=== PATIENT | male | born 1995 | race Caucasian/White ===

== ENCOUNTER 2020-02-19 21:17 | Emergency (ER) | payer BC, SELFPAY ==
[2020-02-19 21:24] VITALS: BP 130/73; PULSE 90; RESP 18; TEMP 36.8; O2SAT 100; BMI 48.6
[2020-02-19 21:30] VITALS: BP 130/73; PULSE 88; RESP 17; O2SAT 99
--- NOTE | 2020-02-19 21:32 | CT_ITS ---
Procedure: CT ABDOMEN PELVIS WO CON Referring Doctor: Jacobo Riggins Patient Age:24Y CLINICAL INDICATION: flank pain the right flank pain with nausea and vomiting 1 hour. Bladder pressure COMPARISON: No exams were available for comparison TECHNIQUE: No IV contrast utilized, and no oral contrast Helical axial images obtained with sagittal and coronal reformats. All CT scans at the facility use one or more dose reduction, viz: automated exposure control, ma/kV adjustment per patient size (including targeted exams where dose is matched to indication, i.e. head), or iterative reconstruction technique. FINDINGS: Lower thorax: Moderate patchy area airspace disease posteriorLLL/left lung base-suspect developing patchy pneumonic infiltrate. There is also a more subtle area of infiltrate at the posterior right lower lobe and posterior sulcus. Patient would benefit fromCovid testing with this appearance to be cautious ABDOMEN: Patient's large size decreases resolution Liver diffuse fatty changes of the liver. No masses or biliary dilatation. Gallbladder: Nondistended. No definitive calcified stones but suspect sludge at at gallbladder.. A difficult to exclude some subtle small noncalcified stones Pancreas: No masses or peripancreatic fluid collections. Spleen: unremarkable Adrenals: unremarkable . tract-------- Tiny punctate calculi seen at both kidneys. Most numerous and evident throughout the left kidney. Left kidney. 4Tiny less than 2 mm nonobstructing calculi left kidney.: 2 at upper pole 1 midportion and 1 towards lower pole. Right kidney. Minimal obstructive uropathy on the right is noted does appear to be a 2 mm calculus projected over the distal right ureter just above the right UVJ. This yield little if any dilatation of the right ureter and only very slight fullness of right pelvocaliceal system system compared to left. Only scant hydronephrosis.. At the right kidney also note tiny less than 2 mm nonobstructing intrarenal calculi: Midportion right kidney (coronal image 58) as well as lower pole (coronal image 55),. . Pelvis. Small bladder.. No free fluid the pelvis but no additional findings. GI tract Stomach postsurgical changes greater curvature stomach suggesting/gastric sleeve/gastric stapling procedure. Small bowel. Unremarkable no dilatation no obstruction. Terminal ileum unremarkable. Appendix identified and normal Large bowel. No significant findings.. Minimal stool right and transverse colon. Incidental abdominal wall hernia is seen to the left of midline slightly above the level of the umbilicus but. The abdominal wall defect here measuring 18 mm and fat containing hernia sac measuring just over 5 cm.. No bowel loops here no inflammation Small fat containing umbilical hernia also noted; no bowel loops no inflammation. Peritoneum: No free air no inflammatory changes no fluid collections Lymph nodes: No enlarged lymph nodes apparent. Vasculature: Unremarkable nt. Bones: No acute fracture or lesions. Mild degenerative changes lower T-spine. Slight wedging T9 could be a could reflect minor old trauma or could merely be congenital given minor wedging hit in overall appearance the IMPRESSION: 1.. Bilateral lower lobe infiltrates with most pronounced patchy area of infiltrate at the left lower lobe. Require correlation, suspect for developing inflammatory process/pneumonia. (Suggest test for Covid) 2... Tiny 2 mm right ureteral calculus distalmost right ureter just proximal to the right UVJ. This yields minimal right obstructive uropathy. With very minimal hydronephrosis on right currently 3...Tiny punctate calculi both kidneys mos
[2020-02-19 21:39] LABS: Basophils # 0.1 K/mm3 (0-0.2); Basophils % 0.5 % (0.1-2.0); Eosinophils # 0.1 K/mm3 (0.0-0.4); Eosinophils % 0.7 % (0.1-12.0); Hematocrit 48.8 % (42.0-52.0); Hemoglobin 16.4 g/dL (14.1-18.0); Lymphocytes # 2.5 K/mm3 (0.7-4.5); Lymphocytes % 24.3 % (10-50); Mean Corpuscular HGB Conc 33.5 g/dL (31.8-35.4); Mean Corpuscular Hemoglobin 29.7 pg (27.0-31.2); Mean Corpuscular Volume 88.7 fl (80-94); Mean Platelet Volume 7.6 fl (7.4-10.4); Monocytes # 0.5 K/mm3 (0.1-1.0); Monocytes % 4.5 % (1.7-9.3); Neutrophils # 7.2 K/mm3 (1.8-7.8); Neutrophils % 70.1 % (37.0-80.0); Platelet Count 281 K/mm3 (142-424); Red Cell Distribution Width 14.9 % (11.5-17.5); White Blood Count 10.3 K/mm3 (4.8-10.8)
[2020-02-19 21:48] LABS: Alanine Aminotransferase 86 U/L (12-78); Albumin Level 4.8 g/dl (3.5-5.0); Albumin/Globulin Ratio 1.4 (1.1-1.8); Alkaline Phosphatase 98 U/L (38-126); Aspartate Amino Transferase 51 U/L (17-59); Bilirubin,Total 0.6 mg/dl (0.2-1.3); Blood Urea Nitrogen 11 mg/dl (9-20); Calcium 9.9 mg/dl (8.4-10.2); Carbon Dioxide 26 mmol/L (22.0-30.0); Chloride 104 mmol/L (98-107); Creatinine Clearance Estimated 153 mL/min (50-200); Estimated Glomerular Filt Rate 102 ml/min (>60); GFR (African American) 123 ML/MIN (>60); Globulin 3.5 g/dL (1.3-3.2); Glucose 127 mg/dl (74-100); Sodium 142 mmol/L (136-145); Total Protein,Serum 8.3 g/dl (6.3-8.2)
[2020-02-19 22:30] VITALS: BP 134/75; PULSE 88; RESP 16; O2SAT 99
[2020-02-19 22:43] LABS: Microscopic, Urine URINE MICROSCOPIC (MICROSCOPIC)
--- NOTE | 2020-02-19 22:47 | [facility].EDGENADL ---
ED Disposition Clinical Impression: Kidney stones Disposition: Home, Self-Care Condition on Discharge: Good Instructions: DI for Acute Pain -- Adult Prescriptions: Tamsulosin HCl [Flomax 0.4mg capsule] 0.4 mg PO HS 10 Days #10 cap Prescription Printed Promethazine HCl 50 mg PO TID 6 Days #20 tab Prescription Printed Ketorolac Tromethamine [Toradol 10mg tablet] 10 mg PO Q6H 5 Days #20 tab Prescription Printed Referrals: Linnea Roe MD [Primary Care Provider] - - Critical Care Critical Care Time: No Attestation: On 02/19/20, the high probability of a clinically significant, sudden or life threatening deterioration of the following system(s) required my full and direct attention, intervention and personal management. The time I documented below is in addition to time spent performing reported procedures but includes the following listed in this critical care notation. Medical Decision Making - Medical Records Medical records reviewed: Yes: I reviewed the patient's medical records. - Vinny Inquiry Pt receiving controlled substance: No Vital Signs: 02/19/20 21:24 02/19/20 21:30 Temperature 98.3 F Temperature Source Oral Pulse Rate [Right] 90 88 Respiratory Rate 18 17 Blood Pressure [Right Arm] 130/73 130/73 Blood Pressure Mean [Right Arm] 92 92 Blood Pressure Source [Right Arm] Automatic Cuff Automatic Cuff Blood Pressure Position [Right Arm] Sitting Supine 02 Sat by Pulse Oximetry 100 99 Oxygen Delivery Method Room Air Room Air - Lab Data Lab results reviewed: Yes: I reviewed the patient's lab results. Lab Results 02/19/20 21:30: WBC 10.3, RBC 5.50, Hgb 16.4, Hct 48.8, MCV 88.7, MCH 29.7, MCHC 33.5, RDW 14.9, Plt Count 281, MPV 7.6, Neut % (Auto) 70.1, Lymph % (Auto) 24.3, [place] % (Auto) 4.5, Eos % (Auto) 0.7, Baso % (Auto) 0.5, Neut # (Auto) 7.2, Lymph # (Auto) 2.5, [place] # (Auto) 0.5, Eos # (Auto) 0.1, Baso # (Auto) 0.1 02/19/20 21:30: Sodium 142, Potassium 4.0, Chloride 104, Carbon Dioxide 26, Anion Gap 16.0 H, BUN 11, Creatinine 0.90, Estimated Creat Clear 153, Estimated GFR 102, Est GFR ( Amer) 123, Glucose 127 H, Calcium 9.9, Total Bilirubin 0.6, AST 51, ALT 86 H, Alkaline Phosphatase 98, Total Protein 8.3 H, Albumin 4.8, Globulin 3.5 H, Albumin/Globulin Ratio 1.4 Result diagrams: 02/19/20 21:30 02/19/20 21:30 Orders (Tests/Meds): ED MEDICATIONS Generic Name Dose Route Start Last Admin Trade Name Freq PRN Reason Stop Dose Admin Sodium Chloride 1,000 mls @ 999 mls/hr 02/19/20 21:45 02/19/20 21:34 Sod Chlor 0.9% 1000ml Bag IV 02/19/20 22:45 999 mls/hr .Q1H1M ASH Administration Discontinued Medications Generic Name Dose Route Start Last Admin Trade Name Freq PRN Reason Stop Dose Admin Ketorolac Tromethamine 30 mg 02/19/20 21:32 02/19/20 21:34 Ketorolac 30mg/Ml Vial IV 02/19/20 21:33 30 mg ONCE ONE Administration Morphine Sulfate 4 mg 02/19/20 22:40 Morphine 4mg/Ml Syringe IV 02/19/20 22:41 ONCE ONE Ondansetron HCl 4 mg 02/19/20 21:32 02/19/20 21:34 Ondansetron 4mg/2ml Vial IV 02/19/20 21:33 4 mg ONCE ONE Administration ORDERS Category Date Time Status CT abdomen pelvis wo con Stat Cat Scan 02/19/20 21:32 Taken Urinalysis and Microscopic Stat Lab 02/19/20 22:30 Received - CT Data CT Scan: Abdomen, Pelvis Time Received: 22:30 Preliminary Findings: Abnormal (2 mm calculus in the right UVJ) General Adult HPI - General Chief complaint: PAIN Stated complaint: Possible kidney stone Time Seen by Provider: 02/19/20 22:47 Mode of Arrival: Ambulatory Limitations: No Limitations Description of Symptoms (Recalled from ER Triage Doc. by RN): Pt c/o superpubic and right flank pain today. - History of Present Illness HPI narrative: 24-year-old male presents emergency department with a acute flank pain rating around to his groin. Patient states his pain started about 90 minutes prior to arr
[2020-02-19 22:48] LABS: Appearance,Urine CLOUDY (Clear); Blood, Urine 3+ (Negative); Color,Urine DK YELLOW (Yellow); Glucose,Urine (UA) Negative (Negative); Ketones,Urine TRACE (Negative); Leukocyte Esterase,Urine Negative (Negative); Nitrate,Urine Negative (Negative); PH,Urine 5.5 (5.0-8.5); Protein,Urine 2+ (Negative); Specific Gravity, Urine >= 1.030 (1.005-1.030); Urobilinogen,Urine 0.2 EU/dl (0.2)
[2020-02-19 22:55] LABS: Bilirubin,Urine Negative (Negative); RBC,Urine TNTC #/hpf (0-3)
[2020-02-19 23:34] VITALS: BP 138/74; PULSE 84; RESP 14; TEMP 36.8; O2SAT 98
== END 2020-02-19 23:37 | disposition home or self-care (01) ==
PROVIDERS: Emergency Provider Family Medicine; PCP Family Medicine
DX: N20.0 Calculus of kidney (principal)
CPT/HCPCS: 74176; 80053; 81001; 85025; 96365; 96366; 96375; 99284; J2405

== ENCOUNTER 2025-03-03 18:43 | Emergency (ER) | payer BC, SELFPAY ==
[2025-03-03] VITALS (7 sets, daily range): BP systolic 137–200; BP diastolic 82–109; PULSE 56–60; RESP 13–16; TEMP 36.8; O2SAT 94–98; BMI 54.8
--- NOTE | 2025-03-03 18:53 | CT_ITS ---
PROCEDURE INFORMATION: Exam: CT Abdomen And Pelvis Without Contrast Exam date and time: 03/03/2025 7:32 PM Age: 29 years old Clinical indication: Abdominal pain; Flank; Lower; Additional info: Flank pain, ureteral stent pulled out today TECHNIQUE: Imaging protocol: Computed tomography of the abdomen and pelvis without contrast. Radiation optimization: All CT scans at this facility use at least one of these dose optimization techniques: automated exposure control; mA and/or kV adjustment per patient size (includes targeted exams where dose is matched to clinical indication); or iterative reconstruction. COMPARISON: CT ABDOMEN PELVIS WO CON 02/19/2020 9:59 PM FINDINGS: Coronary arteries: Coronary artery atherosclerosis. Liver: Normal. No mass. Gallbladder and biliary ducts: Normal. No calcified stones. No ductal dilation. Pancreas: Normal. No ductal dilation. Spleen: Normal. No splenomegaly. Adrenal glands: Normal. No mass. Kidneys and ureters: Mild right hydronephrosis and right hydroureter to the urinary bladder. No ureteral stones. Punctate nonobstructing stone in each kidney. Stomach and bowel: Prior bariatric surgery. No obstruction. No mucosal thickening. Appendix: No evidence of appendicitis. Intraperitoneal space: Unremarkable. No free air. No significant fluid collection. Vasculature: Unremarkable. No abdominal aortic aneurysm. Lymph nodes: Unremarkable. No enlarged lymph nodes. Urinary bladder: Unremarkable. Reproductive: Unremarkable as visualized. Bones/joints: Symmetric sclerosis of the bilateral ilium along the sacroiliac joints, consistent with osteitis condensans ilii. Soft tissues: Small fat containing left paramidline abdominal hernia proximally 5 cm above the umbilicus. Small fat containing umbilical hernia. IMPRESSION: 1. Mild right hydronephrosis and right hydroureter to the urinary bladder. No ureteral stones. 2. Punctate nonobstructing stone in each kidney. 3. Coronary artery atherosclerosis. 4. Additional chronic/nonemergent findings as detailed above.
--- NOTE | 2025-03-03 19:04 | ED_ITS ---
<Statement entered by Nighat Wall DO - 03/04/25 00:08> I was consulted by the BILL, and we discussed the complexity of problems being addressed. I approve the treatment and management plan for this patient's care in the emergency department, thus performing a substantial portion of the medical decision making. Nighat Wall DO Discharge Plan Disposition Patient Disposition: Home, Self-Care Condition: Good Prescriptions Prescriptions: No Action ketorolac 10 MG tablet 10 mg PO Q6H 5 Days Qty: 20 0RF tamsulosin 0.4 MG capsule 0.4 mg PO HS 10 Days Qty: 10 0RF promethazine 50 MG tablet 50 mg PO TID 6 Days Qty: 20 0RF Referrals Follow up/Referrals: Esau Wilson MD [Referring, Medical] - See instructions Linnea Roe MD [Primary Care Provider, Medical] - See instructions Activity Restrictions/Add. Instructions Additional Instructions/Restrictions: Please call your urologist tomorrow for a follow-up appointment. Return here if your pain is not controlled or if you are unable to urinate. Follow-up with your PCP to discuss your abdominal hernias. Clinical Impressions Clinical Impression: Hydronephrosis Instructions Patient Instructions: Hydronephrosis in Adults Print Language Print Language: [place] Discharge ED Provider: Nighat Wall General Adult [facility] General Chief complaint: PAIN Stated complaint: STINT CAME OUT FROM KIDNEY Time Seen by Provider: 03/03/25 18:48 Mode of Arrival: Ambulatory Source of Information: Patient Description of Symptoms (Recalled from ER Triage Doc. by RN): pt presents to ED with c/o pain in penis. pt had a stent placed at [facility] yesterday. the stent began to fall out, pt and his called the [facility] urologist who told him to pull stent out and if he began to have worsening pain to come to ER. last dose of pain medication was at 4 pm, stent was pulled out around 5 pm. History of Present Illness HPI narrative: Patient presents complaining of right flank pain. He had a ureteral stent placed yesterday after kidney stone extraction. This was done at [facility] by Dr. Varma. Today he sat down to urinate and his stent became lodged between his leg and the toilet seat causing it to pull out somewhat. They called the urologist on-call who advised if it was uncomfortable to remove the stent completely. Patient has had extreme pain since that time. He did take pain medication at 1600. The stent came out at 1645. Denies any fevers or vomiting. He is taking [place], hyosamine, Macrobid, Pyridium MD complaint: flank pain Onset (ago): hour(s) (1) Location: back Radiation: non-radiation Severity: severe Consistency: constant Relieving factors: none Exacerbating factors: none Associated symptoms: denies other symptoms Treatments prior to arrival: other (norco ) Related Data Previous Rx's ?Medication ?Instructions ?Recorded ketorolac 10 mg tablet 10 mg PO Q6H 5 days #20 tabs 02/19/20 promethazine 50 mg tablet 50 mg PO TID 6 days #20 tabs 02/19/20 tamsulosin 0.4 mg capsule 0.4 mg PO HS 10 days #10 cap s 02/19/20 Allergies Allergy/AdvReac Type Severity Reaction Status Date / Time No Known Allergies Allergy Verified 02/19/20 21:31 [facility] Disclaimer: The information contained in this section may have been updated after the patient was seen, as this information can be updated by other users. Social History Smoking Status: Never smoker alcohol intake: current alcohol intake frequency: a few times a week current occupational status: employed Travel in the last 8 weeks?: None Have you lived/traveled outside US in past 30 days?: No Contact w/someone who lives/traveled outside US past 30 days?: No Exposure to someone with infectious disease in past 14 days?: No Do you have a fever (greater than 100.4 F or 38 C)?: No Have you tested positive for COVID-19?: No Exposed to someone with COVID-19 in past 14 days?: No Do you have a sore throat?: No Do you have a cough?: No Do you have any weakness?: No Do you have any diarrhea?: No Are you experiencing any unusual bleeding?: No Do you have any muscle aches/pain?: No Do you have any abdominal pain?: No Are you experiencing loss of taste or smell?: No Other Medical History Have you received the Flu Vaccine for this season: No Have you received the Pneumonia Vaccine: No ROS Obtained: Yes Systems reviewed as appropriate & no additional complaints except as documented Physical Exam General General appearance: alert and in no apparent distress Head Head exam: atraumatic and normocephalic Eye Eye exam: Present normal appearance and EOMI Chest Chest inspection: Present symmetric chest wall rise Respiratory Respiratory exam: Present normal lung sounds bilaterally; Absent wheezes or stridor Cardiovascular Cardiovascular exam: Present regular rate and normal rhythm; Absent systolic murmur Extremities Exam Extremities exam: Present full ROM Neurological Exam Neurological exam: Present alert and oriented X3 Psychiatric Psychiatric exam: Present normal affect and normal mood Skin Skin exam: Present warm, dry and intact Medical Decision Making Medical Records Screening: Per USPSTF and CDC recommendations, given the prevalence of disease in our region, it is our hospital?s policy to screen for HIV and viral Hepatitis for all patients aged 18 and over and those with ongoing risk factors. Vinny Inquiry Pt receiving controlled substance: No Vital Signs: 03/03/25 18:50 03/03/25 19:22 03/03/25 19:38 Temperature 98.3 F Temperature Source Oral Pulse Rate Pulse Rate [Left Radial] 60 Respiratory Rate 13 Blood Pressure 165/82 H 182/102 H Blood Pressure [Right Arm] 137/93 H Blood Pressure Mean 100 114 Blood Pressure Mean [Right Arm] 107 02 Sat by Pulse Oximetry 94 L Oxygen Delivery Method Room Air 03/03/25 19:40 03/03/25 20:24 Temperature Temperature Source Pulse Rate 57 L Pulse Rate [Left Radial] Respiratory Rate Blood Pressure 200/109 H 159/92 H Blood Pressure [Right Arm] Blood Pressure Mean 125 114 Blood Pressure Mean [Right Arm] 02 Sat by Pulse Oximetry 97 Oxygen Delivery Method Lab Data Lab Results 03/03/25 19:10: WBC 13.6 H, RBC 5.50, Hgb 16.8, Hct 50.5, MCV 91.8, MCH 30.5, MCHC 33.3, RDW 13.4, Plt Count 283, MPV 10.2, Neut % (Auto) 71.7, Lymph % (Auto) 21.9, Howard % (Auto) 5.7, Eos % (Auto) 0.1, Baso % (Auto) 0.2, Neut # (Auto) 9.7 H, Lymph # (Auto) 3.0, Howard # (Auto) 0.8, Eos # (Auto) 0.0, Baso # (Auto) 0.0, Sodium 141, Potassium 4.1, Chloride 101, Carbon Dioxide 28, Anion Gap 16.1 H, BUN 11, Creatinine 1.10, Estimated Creat Clear 119, Estimated GFR 78, Est GFR ( Amer) 94, Glucose 115 H, Calcium 10.1, Total Bilirubin 0.6, AST 42, ALT 55, Alkaline Phosphatase 96, Total Protein 10.4 H D, Albumin 5.5 H, Globulin 4.9 H, Albumin/Globulin Ratio 1.1, HCV Ab DANIELA w/Rflx PCR Qn Negative, HIV Ag/Ab Combo Qual Negative 03/03/25 19:10 03/03/25 19:10 Orders (Tests/Meds): ED MEDICATIONS Discontinued Medications Generic Name Dose Route Start Last Admin Trade Name Freq PRN Reason Stop Dose Admin Hydromorphone HCl 1 mg 03/03/25 18:53 03/03/25 19:16 Hydromorphone 2mg/Ml Syringe IV 03/03/25 18:54 1 mg ONCE ONE Administration Hydromorphone HCl 1 mg 03/03/25 20:16 03/03/25 20:20 Hydromorphone 2mg/Ml Syringe IV 03/03/25 20:17 1 mg ONCE ONE Administration Sodium Chloride 1,000 mls @ 999 mls/hr 03/03/25 18:53 03/03/25 19:16 Sod Chlor 0.9% 1000ml Bag IV 03/03/25 19:53 999 mls/hr .Q1H1M ONE Administration Ketorolac Tromethamine 30 mg 03/03/25 21:22 03/03/25 21:37 Ketorolac 30mg/Ml Vial IV 03/03/25 21:23 30 mg ONCE ONE Administration Ondansetron HCl 4 mg 03/03/25 18:53 03/03/25 19:16 Ondansetron 4mg/2ml Vial IV 03/03/25 18:54 4 mg ONCE ONE Administration Oxycodone HCl 5 mg 03/03/25 21:47 03/03/25 21:55 Oxycodone 5mg Immediate Release Tablet PO 03/03/25 21:48 5 mg ONCE ONE Administration ORDERS Category Date Time Status CT abdomen pelvis wo con Stat Cat Scan 03/03/25 18:53 Completed CBC w/Auto Diff [Complete Blood Count Auto Diff] Stat Lab 03/03/25 19:10 Completed CMP [Comprehensive Metabolic Panel] Stat Lab 03/03/25 19:10 Completed HIV Combo Routine Lab 03/03/25 19:10 Completed Hepatitis C Ab Qual. W/ RFX Routine Lab 03/03/25 19:10 Completed Urinalysis and Microscopic Stat Lab 03/03/25 21:45 Received Medical Decision Narrative: In summary patient is a 29-year-old male who presents the emergency department for evaluation of flank pain. Patient is hemodynamically stable upon arrival, afebrile. Unremarkable physical exam. Differential diagnosis includes hydronephrosis, UTI, hematuria. Initial workup will be conducted with hematologic labs, CT abdomen pelvis, urinalysis. Initial inventions include fluids, Dilaudid, Zofran. Initial workup reviewed by me unremarkable labs, CT abdomen and pelvis does show some mild hydronephrosis. Urology had advised patient to remove his ureteral stent and go to the ER if his pain was not controlled. In the ER pain is controlled and patient is able to void. I did attempt to discuss findings with Dr. Ku on-call for his urologist group, however the transfer center informed me that he was unable to give any medical advice over the phone. Upon repeat evaluation patient had acceptable resolution of symptoms. Given this patient is appropriate for discharge home at this time. He was given return precautions and advised to call his urologist tomorrow. Critical Care Critical Care Time Critical Care Time: No
--- OUTSIDE RECORDS SUMMARY | 2025-03-03 19:04 | XMS_ITS | Data Portability ---
Author Organization [facility] AIMEE Schmidt [place] [facility]OS[place] Address [address] [facility] [address] [place] [address] Care Team Providers Care Bowling Ball Engraver Name Role Phone GAYE ROE Referring Provider [phone] Assessment Encounter Date Assessment Date Assessment LastModified by Organization Details LastModified Time 04/19/2020 04/19/2020 Possible male infertility. I recommended 2 semen analyses and discussed proper technique for collection. He will drop these off at the lab and we will contact him with those results when available. Not available 04/19/2020 13:49:40 Plan of Treatment Reminders Order Date Submit Date Provider Last Modified By Organization Details Last Modified Time Details Appointments None recorde dKirit Lab testost erone, total, serum 024 04/24/19 24 [facility], [address] [place] [address], [phone], 4 14:29:27 testost erone, free, serum 024 04/24/[address] [facility], [address] [place] [address], [phone], 4 16:54:02 estroge n, total, serum 024 04/24/[address], [address] [place] [address], [address], 4 16:54:02 lh (lutein izing hormone ), serum 024 04/24/19 24 [facility], [address] [place], [address], 4 14:29:27 FSH (follic le-stim ulating hormone ), serum 024 04/24/19 24 [facility], [address] [place] [address], [phone], 4 14:29:27 prolact in, serum 024 04/24/19 24 [facility], [address] [place] [address], [phone], 4 14:29:27 urinaly sis, dipstic k, auto 021 04/19/19 21 [email or web address] Not available 13:49:53 Referral None recorde d. Procedures None recorde d. Surgeries None recorde d. Imaging None recorde d. Medication Orders None recorde d. Patient TargetsNo targets recorded. Patient Instructions Encounter Date Encounter Id Patient Instructions Last Modified By Organization Details Last Modified Time 04/19/2020 [id number] infertility: car e instructions Not available 04/19/2020 13:49:52 Reason for Referral None Reported. Results Created Date Observation Date Name Description Value Unit Range Abnormal Flag Note LastModifiedBy Organization Detail LastModifiedTime 04/19/1904/19/2020 urina lysis , dipst ick, auto color yellow Not Available [facility] [address] [place] [address], [phone], 04/19/2020 13:32:16 04/19/19 21 04/19/2020 urina lysis , dipst ick, auto clarity clear Not Available [facility] [address] [place] [address], [address], 04/19/2020 13:32:16 04/19/19 21 04/19/2020 urina lysis , dipst ick, auto urobilinogen norm mg/dL <=1 normal Not Available [facility] [address] [place] [address], [address], 04/19/2020 13:32:16 04/19/19 21 04/19/2020 urina lysis , dipst ick, auto specific gravity 1.020 g/cm3 1.003- 1.035 normal Not Available [facility] [address], [address], 04/19/2020 13:32:16 04/19/19 21 04/19/2020 urina lysis , dipst ick, auto protein neg mg/dL negati ve normal Not Available [facility] [address], [address], 04/19/2020 13:32:16 04/19/1904/19/2020 urina lysis , dipst ick, auto pH 6 5-8 normal Not Available [facility] [address], [address], 04/19/2020 13:32:16 04/19/1904/19/2020 urina lysis , dipst ick, auto nitrite neg negati ve normal Not Available [facility] [address], [address], 04/19/2020 13:32:16 04/19/1904/19/2020 urina lysis , dipst ick, auto leukocytes neg sarah/u L negati ve normal Not Available [facility] [address], [address], 04/19/2020 13:32:16 04/19/1904/19/2020 urina lysis , dipst ick, auto ketone neg mg/dL negati ve normal Not Available [facility] [address], [address], 04/19/2020 13:32:16 04/19/19 21 04/19/2020 urina lysis , dipst ick, auto glucose norm mg/dL normal normal Not Available [facility] [address] [place], [address], 04/19/2020 13:32:16 04/19/19 21 04/19/2020 urina lysis , dipst ick, auto blood neg jovanna/u L negati ve normal Not Available [facility] [address] [place], [address], 04/19/2020 13:32:16 04/19/19 21 04/19/2020 urina lysis , dipst ick, auto bilirubin neg mg/dL negati ve normal Not Available [facility] [address] [place], [address], 04/19/2020 13:32:16 04/26/19 21 04/19/2020 semen sarai sis comment: see below normal WHO 4th Editi on Class ifica tion Metho d used to asses s sperm morph ology . Not Available [facility] [address] [place] [address], [address], 04/28/2020 14:03:00 04/26/19 21 04/26/2020 semen sarai sis semen appearance NORMAL normal normal Not Available [facility] [address] [place] [address], [address], 04/28/2020 14:03:00 04/26/19 21 04/26/2020 semen sarai sis semen volume 0.9 mL 2.0-5. 0 low Not Available [facility] [address] [place] [address], [address], 04/28/2020 14:03:00 04/26/19 21 04/26/2020 semen sarai sis semen pH 7.0 7.0-8. 0 normal Not Available [facility] [address] [place] [address], [address], 04/28/2020 14:03:00 04/26/19 21 04/26/2020 semen sarai sis semen viscosity WATERY normal abnormal Not Available [facility] [address] [place] [address], [address], 04/28/2020 14:03:00 04/26/19 21 04/28/2020 semen sarai sis head defect, sperm 0 % normal Not Available [facility] [address] [place] [address], [address], 04/28/2020 14:03:00 04/26/19 21 04/28/2020 semen sarai sis tail defect, sperm 0 % normal Not Available [facility] [address] [place] [address], [address], 04/28/2020 14:03:00 04/26/19 21 04/28/2020 semen sarai sis normal sperm 0 % 30-100 low Not Available [facility] [address] [place] [address], [address], 04/28/2020 14:03:00 04/26/19 21 04/28/2020 semen sarai sis immature form, sperm 0 % normal Not Available [facility] [address] [place] [address], [address], 04/28/2020 14:03:00 04/26/19 21 04/28/2020 semen sarai sis neck/mid piece defect 0 % normal Not Available [facility] [address] [place] [address], [phone], 04/28/2020 14:03:00 04/26/19 21 05/03/2020 fruct ose, quant itati ve ,seme n fructose, semen 120 mg/dL 150-60 0 low TEST PERFO RMED AT: [facility] [address] [place] [address] ARLENE ERWIN MD,P HD Not Available [facility] [address] [place], [address], 05/03/2020 17:31:50 04/24/19 24 04/24/2023 LUTEN IZING HORMO NE lutenizing hormone 7.6 m[IU] /mL 1.7-8. 6 normal LH EXPEC VIOLETTA VALUE S WOMEN : FOLLI CULAR PHASE 2.4-1 2.6 mIU/m L OVULA TION PHASE 14.0- 95.6 mIU/m L LUTEA L PHASE 1.0-1 1.4 mIU/m L POSTM ENOPA USE 7.7-5 8.5 mIU/m L . Not Available [facility] [address] [place] [address], [address], 04/24/2023 19:02:44 04/24/19 24 04/24/2023 PROLA CTIN prolactin 13.40 NG/mL 4.04-1 5.20 normal Not Available [facility] [address] [place] [address], [address], 04/24/2023 19:02:45 04/24/19 24 04/24/2023 FOLLI ESTHELA STIM. HORMO NE follicle stim. hormone 7.7 m[IU] /mL 1.5-12 .4 normal FSH EXPEC VIOLETTA VALUE S FEMAL ES: FOLLI CULAR PHASE : 3.5 - 12.5 MIU/M L OVULA TION PHASE : 4.7 - 21.5 MIU/M L LUTEA L PHASE : 1.7 - 7.7 MIU/M L POST MENOP AUSE: 25.8 - 134.8 MIU/M L . Not Available [facility] [place], [address], 04/24/2023 19:02:47 04/24/19 24 04/24/2023 TESTO STERO NE, TOTAL testosterone , total 164 NG/dL 249-83 6 low Refer ence range is for age 20-49 years . Not Available [facility] [place], [address], 04/24/2023 19:02:48 04/25/19 24 04/25/2023 TEST NOT PERFO RMED test not performed - abnormal Estro gen, Serum and Testo stero ne, Free Speci men quant ity insuf ficie nt. Not Available [facility] [address] [place], [address], 04/25/2023 15:36:20 Result Notes None recorded. Problems Name Problem SNOMED Code Status Onset Date Resolution Date Notes Provider Name and Address Organization Details Recorded Time Male hypogonadism 99175388 Active 2023 MICKEY BRYANT JR, MD [address] [place] [address], [phone], [facility] 14:56:59 Problem Notes None recorded. Procedures Surgical History Date Name Laterality Status Provider Name and Address Organization Details Recorded Time bypass of stomach completed Janay Rivera [facility] 04/19/2020 13:23:21 Imaging Results None recorded. Procedure Notes None recorded. Medical Equipment None Reported. Allergies No known drug allergies Medications Name Sig Start Date Stop Date Status Note LastModified by Organization Details LastModified Time amoxicillin 500 mg capsule TAKE 1 CAPSULE BY MOUTH THREE TIMES DAILY 04/19 completed Not Available Not Available Not Available anastrozole 1 mg tablet TAKE 1 TABLET BY MOUTH EVERY DAY active Not Available Not Available No t Available prednisone 10 mg tablet TAKE 6 TABLETS ON DAY 1 THEN TAKE 5 TABLETS ON DAY 2 THEN TAKE 4 TABLETS ON DAY 3 THEN TAKE 3 TABLETS ON DAY 4 THEN TAKE 2 TABLETS ON DAY 5 04/19 completed Not Available Not Available Not Available ibuprofen 800 mg tablet TAKE 1 TABLET BY MOUTH EVERY 6 HOURS NEEDED FOR PAIN 04/19 completed Not Available Not Available Not Available ketorolac 10 mg tablet TAKE 1 TABLET BY MOUTH EVERY 6 HOURS 04/19 completed Not Available Not Available Not Available oxycodone-a cetaminophe n 5 mg-325 mg tablet TAKE 1 TABLET BY MOUTH EVERY 4 HOURS NEEDED FOR PAIN 04/19 completed Not Available Not Available Not Available tamsulosin 0.4 mg capsule TAKE 1 CAPSULE BY MOUTH AT BEDTIME 04/19 completed Not Available Not Available Not Available trazodone 100 mg tablet TAKE 1/2 TO 1 (ONE-HALF TO ONE) TABLET BY MOUTH ONCE DAILY AT NIGHT active Not Available Not Available No t Available promethazin e 25 mg tablet TAKE 1 TABLET BY MOUTH THREE TIMES A DAY 04/19 completed Not Available Not Available Not Available ergocalcife rol (vitamin D2) 1,250 mcg (50,000 unit) capsule TAKE 1 CAPSULE BY MOUTH ONCE A WEEK active Not Available Not Available No t Available ondansetron 4 mg disintegrat ing tablet DISSOLVE 1 TABLET IN MOUTH TWICE DAILY NEEDED active Not Available Not Available No t Available Clomid 50 mg tablet active Not Available Not Available No t Available testosteron e 1.62 % (20.25 mg/1.25 gram) transdermal gel packet Apply 1 packet every day by transderm al route as directed. 2023 active Not Available Not Available Not Avai lable Zepbound 2.5 mg/0.5 mL subcutaneou s pen injector INJECT 2.5 MG SUBCUTANE OUSLY ONCE WEEKLY active Not Available Not Available No t Available Vitals Date Recorded Body weight Body mass index (BMI) Body height Provider Name and Address Organization Details Last Updated DateTime 04/19/2020 860467.72 g 53.7 kg/m2 190.5 cm Janay Rivera [facility] 04/19/2020 13:25:17 Social History Question Answer Notes LastModified by Organizat ion Details LastModified Time Tobacco Smoking Status [facility] 13:22:13 Marital Status Informatio n not available 04/19/2020 Sex: Male Functional Status Question Answer Note LastModified by Organization D etails LastModified Time What is your level of alcohol consumption? 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 Family History Relationship Description Onset Age of this Age Resolved Age Notes LastModified by Organization Details LastModified Time Unspecified Relation Family history of malignant neoplasm breast & skin Not available 04/19/2020 13:21:32 Unspecified Relation Hypertensive disorder Not available 2020 13:21:56 Unspecified Relation Diabetes mellitus Not available 2020 13:22:04 Medical History Condition Response Kidney Stones Y Hypertension Y Past Encounters Encounter ID Performer Location Encounter Start Date Encounter Closed Date Diagnosis/Indication Diagnosis SNOMED-CT Code Diagnosis ICD10 Code Diagnosis IMO Codes Diagnosis Note [id number] NEGRA PRUETT MD [facility] [address] [place] [address] 04/19/2020 13:05:38 04/19/2020 13:56:24 Male infertility 4747728 N46.9 [id number] MICKEY BRYANT JR, MD [facility] [address] [place] [address] 04/24/2023 15:08:30 04/28/2023 04:07:16 Male hypogonadism 90608674 E29.1 Health Concerns Section Related Observation LastModified by Organization Detai ls LastModified Time None Recorded Concern Status LastModified by Organization Details LastModified Time None Recorded Advance Directives Directive None Recorded Payers Insurance Date Sequence Insurance Name Policy Number Policy Lara Covered Member ID Lara Member ID Guarantor Name 04/28/2023 1 [facility] ([facility] [id number] Shahbaz Montez [id number] Ton Montez 03/07/2023 1 PITER Montez [id number] Tonsheryl Montez Notes Date Note Type Note Provider Name and Address Organization Details Recorded Time 04/19/2020 text/html Mr. Montez comes in today for evaluation of possible infertility at the request of Dr. Roe. The patient reports that he and his have been trying to conceive for almost 2 years. She has never been and he has never fathered a child. He denies a family history of CF. He denies voiding issues. No erectile dysfunction. No ejaculatory issues. He reports normal libido. He rarely takes alcohol, is a nonsmoker and denies the use of other drugs. He is not taking any prescription medications at this time. NEGRA PRUETT MD [address] [place] [address], [phone], [facility] 04/19/2020 13:50:47 04/24/2023 text/html Patient is in today for discussion of hypogonadism. He is a pleasant gentleman who has been evaluated for Azo spermia in the past. During that work up, he was found to have significant hypergonadism. He is now interested in testosterone replacement therapy understanding the implications on fertility. Recent testosterone levels are reviewed. He's most interested in testosterone cream therapy. MICKEY BRYANT JR, MD [facility] [place], [address], [facility] 04/27/2023 10:25:03
[2025-03-03] MEDS: ONDANSETRON 4MG/2ML VIAL 4 MG IV (19:16)
[2025-03-03] MEDS: 0.9 % SODIUM CHLORIDE 1000ML 1,000 ML 999 ML IV (19:16)
[2025-03-03] MEDS: HYDROMORPHONE 2MG/ML SYRINGE 1 MG IV ×2 (19:16→20:20)
[2025-03-03 19:17] LABS: Hematocrit 50.5 % (42.0-52.0); Hemoglobin 16.8 g/dL (14.1-18.0); Immature Granulocytes % 0.4 %; Mean Corpuscular HGB Conc 33.3 g/dL (31.8-35.4); Mean Corpuscular Hemoglobin 30.5 pg (27.0-31.2); Mean Corpuscular Volume 91.8 fl (80-94); Nucleated Red Blood Cells % 0 %; Platelet Count 283 K/mm3 (142-424); Red Blood Count 5.50 M/mm3 (4.60-6.20); Red Cell Distribution Width-SD 45.5 fL; White Blood Count 13.6 K/mm3 (4.8-10.8)
[2025-03-03 19:33] LABS: Alanine Aminotransferase 55 U/L (12-78); Albumin Level 5.5 g/dl (3.5-5.0); Albumin/Globulin Ratio 1.1 (1.1-1.8); Alkaline Phosphatase 96 U/L (38-126); Anion Gap 16.1 mEq/L (5-15); Aspartate Amino Transferase 42 U/L (17-59); Bilirubin,Total 0.6 mg/dl (0.2-1.3); Blood Urea Nitrogen 11 mg/dl (9-20); Calcium 10.1 mg/dl (8.4-10.2); Carbon Dioxide 28 mmol/L (22.0-30.0); Chloride 101 mmol/L (98-107); Creatinine Clearance Estimated 119 mL/min (50-200); Creatinine,Serum 1.10 mg/dl (0.66-1.25); Estimated Glomerular Filt Rate 78 ml/min (>60); GFR (African American) 94 ML/MIN (>60); Globulin 4.9 g/dL (1.3-3.2); Glucose 115 mg/dl (74-100); Potassium 4.1 mmoL/L (3.5-5.1); Sodium 141 mmol/L (136-145); Total Protein,Serum 10.4 g/dl (6.3-8.2)
[2025-03-03 20:31] LABS: Hepatitis C Ab Qual. W/ RFX NEGATIVE (Negative)
[2025-03-03] MEDS: KETOROLAC 30MG/ML VIAL 30 MG IV (21:37)
[2025-03-03 21:52] LABS: Microscopic, Urine URINE MICROSCOPIC (MICROSCOPIC)
[2025-03-03] MEDS: OXYCODONE 5MG IMMEDIATE RELEASE TABLET 5 MG PO (21:55)
[2025-03-03 22:10] LABS: Bilirubin,Urine Negative (Negative); Color,Urine Amber (Yellow); Glucose,Urine (UA) TRACE (Negative); Ketones,Urine TRACE (Negative); Leukocyte Esterase,Urine 1+ (Negative); PH,Urine 6.5 (5.0-8.5); Protein,Urine 3+ (Negative); Specific Gravity, Urine 1.025 (1.005-1.030); Urobilinogen,Urine >=8.0 EU/dl (0.2)
[2025-03-03 22:34] LABS: RBC,Urine TNTC #/hpf (0-3)
== END 2025-03-03 22:15 | disposition home or self-care (01) ==
PROVIDERS: Physician Assistant; Emergency Provider Student in an Organized Health Care Education/Training Program; PCP Family Medicine
DX: N13.2 Hydronephrosis with renal and ureteral calculous obstruction (principal); I25.10 Atherosclerotic heart disease of native coronary artery without angina pectoris; Z98.890 Other specified postprocedural states
CPT/HCPCS: 74176; 80053; 81001; 85025; 86803; 87086; 87389; 96361; 96374; 96375; 96376; 99285; J1171; J1885; J2405; J7030